=== PATIENT | female | born 1950 | race Caucasian/White ===

== ENCOUNTER → 2019-04-02 | Outpatient (CLI) | payer MEDICARE ==
[2015-02-27 18:49] VITALS: BP 116/63
--- NOTE | 2019-04-03 14:51 | RAD ---
Bone densitometry - lumbar spine: L1-L4. Clinical history: 68-year-old female with osteopenia. Dual energy x-ray absorptiometry of the lumbar spine, reveals a bone mineral density of 1.404 gm/cm2. This value is 125 % of the bone density which would have been predicted for this 68-year-old female, based on age and weight regression equations. Today's measurement is also 119 % of peak bone density usually attained by the third decade. It is 1.9 standard deviations above the expected young adult normal value (T-score = 1.9 ). At this bone density level, fracture risk is not increased. Bone Densitometry - Hip: Right. Dual energy x-ray absorptiometry of the right femur reveals a bone mineral density of 1.149 gm/cm2. This value is 121 % of the bone density which would have been predicted for this 68 year old female , based on age and weight regression equations. Today's measurement is also 114 % of the peak bone density usually attained by the third decade. It is 1.1 standard deviations above the expected young adult normal value (T-score = 1.1 ). At this bone density level, fracture risk is not increased. Impression: 1. Normal bone mineral density of the lumbar spine and hip. Note: Definitions established by the World Health Organization: 1. Normal: T-score is -1.0 or above. 2. Osteopenia: T-score is between -1.0 and -2.5. 3. Osteoporosis: T-score is -2.5 or below. Electronically signed by: Blanco Aldana MD (04/03/2019 2:49 PM) [facility]
--- NOTE | 2019-04-10 14:07 | RAD ---
DATE: April 02, 2019 EXAM: MAMMO LONNIE SCREENING BILATERAL HISTORY: Screening study. COMPARISON: None. New baseline study. This study was interpreted with the benefit of Computerized Aided Detection (CAD). 2-D digital mammographic views of both breasts were performed in the CC and MLO projections. 3-D digital tomosynthesis images of both breasts were performed in the CC and MLO projections and reviewed on a computer workstation. FINDINGS: Breast Density: FATTY The breast parenchyma is primarily fatty replaced. Breast parenchyma level density A.. There are no dominant suspicious masses, suspicious microcalcifications or evidence of architectural distortion. However, there is a small anterior right breast nodule just lateral to the nipple in the CC projection and located at nipple level in the MLO projection seen best on lonnie CC image 31 and MLO lonnie image 37. It is located 3 cm from the nipple. It measures 6 mm in size. IMPRESSION: Anterior right breast nodule. Recommend right breast sonography. BI-RADS CATEGORY: 0 INCOMPLETE: NEEDS ADDITIONAL IMAGING EVALUATION AND/OR PRIOR MAMMOGRAMS FOR COMPARISON. RECOMMENDED FOLLOW-UP: ADD ADDITIONAL IMAGING PQRS compliance statement: Patient information was entered into a reminder system with a target due date now for the next imaging study. Mammography is a sensitive method for finding small breast cancers, but it does not detect them all and is not a substitute for careful clinical examination. A negative mammogram does not negate a clinically suspicious finding and should not result in delay in biopsying a clinically suspicious abnormality. "Our facility is accredited by the [employer] Mammography [employer]." The patient's breast density may affect the ability of mammography to detect breast cancer. There are 4 categories of breast density, A, B, C and D. Breast density A means that most of the breast tissue is replaced with adipose tissue and therefore is not dense. Breast density B means that the breast tissue is mildly dense and scattered. Breast density C means that the breast tissue is heterogeneously dense. Breast density D means that the breast tissue is very dense. Breast densities especially C and D may decrease the sensitivity of mammography to detect breast cancer. Therefore, the patient may benefit from 3-D breast mammography (3D breast tomography) as a part of their screening mammogram. Insurance may or may not pay for this additional imaging. The patient's breast density based on today's mammogram is category A.
== END | disposition home or self-care (01) ==
LOC: DXRAD 10:21
PROVIDERS: ATTEND Family Medicine
DX: Z12.31 Encounter for screening mammogram for malignant neoplasm of breast (principal); N63.10 Unspecified lump in the right breast, unspecified quadrant; M85.88 Other specified disorders of bone density and structure, other site
CPT/HCPCS: 77063; 77067; 77080

== ENCOUNTER → 2019-04-25 | Outpatient (CLI) | payer MEDICARE ==
[2015-02-27 18:49] VITALS: BP 116/63
--- NOTE | 2019-04-25 13:41 | RAD ---
Examination: BREAST RIGHT History: Abnormal mammogram Comparison/Correlation: 04/02/2019 screen mammographic exam Findings: Right upper outer breast ultrasound exams performed. There is a 0.2 cm x 0.2 cm x 0.2 cm anechoic or hypoechoic structure at the 10:00 region 4 cm from the nipple. No flow evident within it. It is indeterminate if it corresponds to finding on the recent mammographic exam. Impression: BI-RADS Category 3-probably benign. Six-month follow-up mammogram and ultrasound of the right breast recommended to assess stability. Electronically signed by: Prasad Mulligan MD (04/25/2019 1:38 PM) [facility]
== END | disposition home or self-care (01) ==
LOC: US 12:48
PROVIDERS: ATTEND Family Medicine
DX: R92.8 Other abnormal and inconclusive findings on diagnostic imaging of breast (principal)
CPT/HCPCS: 76641

== ENCOUNTER → 2019-12-09 | Outpatient (CLI) | payer MEDICARE ==
[2015-02-27 18:49] VITALS: BP 116/63
--- NOTE | 2019-12-09 14:25 | RAD ---
EXAM: 1. Unilateral digital diagnostic 3-D mammography, right. 2. Right breast ultrasound. HISTORY: Six-month follow-up right breast nodule. TECHNIQUE: Unilateral right full field digital images were obtained in CC and MLO projections with tomosynthesis. Computer-aided detection was applied. Sonography of the right upper outer breast was also performed. COMPARISON: 04/02/2019, 04/25/2019. COMPOSITION: B. There are scattered areas of fibroglandular density. FINDINGS: The nodule of concern in the right superolateral periareolar distribution is unchanged. Sonography at this site demonstrates a 3.5 x 1.7 cm hypoechoic nodule at the 10:00 position 4 cm from the nipple. This may or may not be the same lesion as noted on prior sonography. It appears benign and may represent a small complicated cyst. Elsewhere, scattered calcifications are benign. There are no clearly suspicious masses, microcalcifications or architectural distortion. The parenchymal pattern is stable. BI-RADS CATEGORY 3: Probably Benign. RECOMMENDATION: 1. Attention to the probably benign nodule superolaterally on the right with the patient returns for her yearly mammography in March 2020. Electronically signed by: Bennett Garncia MD (12/09/2019 2:22 PM) [id number]
== END | disposition home or self-care (01) ==
LOC: MAMMO 12:51
PROVIDERS: ATTEND Family Medicine
DX: R92.1 Mammographic calcification found on diagnostic imaging of breast (principal); N63.11 Unspecified lump in the right breast, upper outer quadrant; N60.01 Solitary cyst of right breast
CPT/HCPCS: 76641; 77065; G0279; 77061

== ENCOUNTER → 2020-04-03 | Outpatient (CLI) | payer MEDICARE ==
[2015-02-27 18:49] VITALS: BP 116/63
--- NOTE | 2020-04-03 16:30 | RAD ---
Examination: MG BILAT SCREEN+LONNIE History: Reason: SCREENING MAMMOGRAM 3D / Spl. Instructions: / History: Comparison/Correlation: 04/02/2019, 12/09/2019 Technique: MLO and CC digital tomosynthesis (3D) images obtained. Radiologist reviewed these images on dedicated workstation. Findings: Breast Tissue Density B : There are scattered areas of fibroglandular density. There are no dominant masses, suspicious microcalcifications, or architectural distortion. No signif icant changes compared to prior exams. IMPRESSION: No mammographic evidence of malignancy. Recommend routine screening. BI-RADS category 1: Negative. The images were reviewed with computer-aided detection. Patient information is entered into reminder system with a target due date for the next screening [facility] mogram. Mammography is the most sensitive method for finding small breast cancers, but it does not detect the m all and is not a substitute for careful clinical examination. A negative mammogram does not negate a clinically suspicious finding and should not result in delay in biopsying a clinically suspicious a bnormality. "Our facility is accredited by the [employer] Mammography [employer]." Electronically signed by: Prasad Mulligan MD (04/03/2020 4:28 PM) [id number]
== END ==
LOC: MAMMO 12:48
PROVIDERS: ATTEND Family Medicine
DX: Z12.31 Encounter for screening mammogram for malignant neoplasm of breast (principal)
CPT/HCPCS: 77063; 77067